=== PATIENT | male | born 1985 | race Hispanic/Latino ===

== ENCOUNTER 2019-07-25 10:13 | Emergency (ER) | payer OTHER ==
[~2019-07-25] VITALS: Ht 185.4 cm; Wt 101.8 kg
[2019-07-25 10:48] LABS: BASO # 0.1 10^3/uL (0.0-0.2); BASO % 0.8 % (0.0-1.0); EOS # 0.1 10^3/uL (0.0-0.5); EOS % 2.1 % (0.0-3.0); HEMATOCRIT 48.8 % (42.0-52.0); HEMOGLOBIN 15.9 g/dl (13.5-17.5); LYMPH # 1.5 10^3/uL (1.5-5.0); LYMPH % 24.5 % (24.0-44.0); MEAN CORPUSCULAR HEMOGLOBIN 29.1 pg (27.0-33.0); MEAN CORPUSCULAR HGB CONC 32.6 g/dl (32.0-36.5); MEAN CORPUSCULAR VOLUME 89.2 fl (80.0-96.0); MONO # 0.6 10^3/uL (0.0-0.8); MONO % 9.3 % (0.0-5.0); NEUTROPHILS # 3.9 10^3/uL (1.5-8.5); NEUTROPHILS % 63.1 % (36.0-66.0); PLATELET COUNT, AUTOMATED 220 10^3/uL (150-450); RED BLOOD COUNT 5.47 10^6/uL (4.30-6.10); WHITE BLOOD COUNT 6.2 10^3/uL (4.0-10.0)
[2019-07-25 11:26] LABS: BLOOD UREA NITROGEN 11 MG/DL (7-18); CALCIUM LEVEL 9.7 MG/DL (8.5-10.1); CARBON DIOXIDE LEVEL 31 MEQ/L (21-32); CHLORIDE LEVEL 104 MEQ/L (98-107); CREATININE FOR GFR 0.92 MG/DL (0.70-1.30); GLOMERULAR FILTRATION RATE > 60.0 (>60); GLUCOSE, FASTING 88 MG/DL (70-100); POTASSIUM SERUM 4.7 MEQ/L (3.5-5.1); SODIUM LEVEL 139 MEQ/L (136-145)
[2019-07-25 12:45] VITALS: BP 109/70
--- NOTE | 2019-07-25 12:47 | REP ---
SCROTAL ULTRASOUND: Real-time sonographic evaluation of scrotum and contents performed. Testicles are normal in size and echotexture, right testicle measuring 4.3 x 2.4 x 3.7 cm and left testicle 5.0 x 2.3 x 3.2 cm. There is no testicular mass or torsion, blood flow is seen in each testicle with duplex Doppler evaluation. There are very small hydroceles. There appears to be a small left varicocele inferiorly with mildly prominent venous structures present. IMPRESSION: No testicular mass or torsion. Electronically Signed by Cristian James MD 07/25/2019 06:44 P
--- NOTE | 2019-07-25 12:49 | REP ---
INGUINAL ULTRASOUND: Real-time sonographic evaluation of bilateral inguinal regions performed at rest and with Valsalva maneuver. There is a right inguinal hernia with protrusion of mesenteric fat into the inguinal ring with Valsalva maneuver. It is reducible. No hernia is seen on the left. IMPRESSION: Small right inguinal hernia containing fat but no bowel, reducible. Electronically Signed by Cristian James MD 07/25/2019 06:45 P
[2019-07-25 13:08] LABS: CHLAMYDIA DNA AMPLIFICATION NEGATIVE (NEGATIVE); GC DNA AMPLIFICATION NEGATIVE (NEGATIVE)
== END 2019-07-25 12:46 | disposition home or self-care (01) ==
LOC: M ED 10:13
DX: K40.90 Unilateral inguinal hernia, without obstruction or gangrene, not specified as recurrent (principal)

== ENCOUNTER 2020-04-05 22:33 | Emergency (ER) | payer OTHER ==
[~2020-04-05] VITALS: Ht 185.4 cm; Wt 94.4 kg
[2020-04-05 22:34] VITALS: BP 129/67
--- NOTE | 2020-04-06 00:04 | REPVR ---
PROCEDURE INFORMATION: Exam: US Pelvis Limited, Male Exam date and time: 04/05/2020 11:32 PM Age: 35 years old Clinical indication: Pain; Testicle; Additional info: Possible hernia TECHNIQUE: Imaging protocol: Real-time pelvic ultrasound with image documentation. COMPARISON: Pelvis, limited US 07/25/2019 11:20 AM FINDINGS: Soft tissues: There is a small reducible fat containing right inguinal hernia that was also present in the prior ultrasound on 07/25/2019. No left inguinal hernia is identified. IMPRESSION: Small reducible fat containing right inguinal hernia that was also present in the prior ultrasound on 07/25/2019. Electronically signed by: Fahad Carbajal On 04/06/2020 00:04:40 AM
--- NOTE | 2020-04-06 00:05 | REPVR ---
PROCEDURE INFORMATION: Exam: US Scrotum and US Duplex Artery and Vein, Scrotum, Complete Exam date and time: 04/05/2020 11:32 PM Age: 35 years old Clinical indication: Scrotum pain; Additional info: Testicular pain, left greater than right TECHNIQUE: Imaging protocol: Real-time ultrasound of the scrotum. Real-time duplex ultrasound scan of the arterial and venous flow of the scrotum with B-mode, color Doppler flow and spectral waveform analysis. Complete exam. Duplex images required to evaluate vascular conditions. COMPARISON: Scrotal, US 07/25/2019 11:09 AM FINDINGS: Right testicle: The right testicle is normal in appearance. No testicular mass or lesion is noted. The right testicle measures 4.5 cm x 2.7 cm x 3.8 cm. The arterial and venous color Doppler flow and spectral waveforms within the right testicle are within normal limits. There is no evidence for right testicular torsion or orchitis. Left testicle: The left testicle is normal in appearance. No testicular mass or lesion is noted. The left testicle measures 5.2 cm x 3 cm x 3 cm. The arterial and venous color Doppler flow and spectral waveforms within the left testicle are within normal limits. There is no evidence for left testicular torsion or orchitis. Epididymides: Normal. No epididymitis. Scrotum: No hydrocele is noted. IMPRESSION: Normal scrotal ultrasound. No evidence for testicular torsion, orchitis, or epididymitis. Electronically signed by: Fahad Carbajal On 04/06/2020 00:04:52 AM
[2020-04-06] MEDS ORDERED: NAPR500T6 PO (00:54)
[2020-04-06] MEDS ORDERED: NAPROXEN 250 MG TAB PO ONE (01:00)
[2020-04-06 02:59] LABS: CHLAMYDIA DNA AMPLIFICATION NEGATIVE (NEGATIVE); GC DNA AMPLIFICATION NEGATIVE (NEGATIVE)
== END 2020-04-06 01:10 | disposition home or self-care (01) ==
LOC: M ED 22:33
DX: N50.812 Left testicular pain (principal)

== ENCOUNTER → 2020-05-17 | Outpatient (CLI) | payer SELFPAY ==
[~2020-05-17] MED LIST: NAPR500T6 PO
== END ==
LOC: M LABSMTC 12:26
PROVIDERS: ATTEND Pediatrics
DX: Z20.828 Contact with and (suspected) exposure to other viral communicable diseases (principal)

== ENCOUNTER → 2020-05-25 | Outpatient (CLI) | payer SELFPAY | LOC: M LABSMTC 13:14 | PROVIDERS: ATTEND Pediatrics | DX: Z20.828 Contact with and (suspected) exposure to other viral communicable diseases (principal) ==

== ENCOUNTER → 2020-06-05 | Outpatient (CLI) | payer SELFPAY | LOC: M LABSMTC 11:51 | PROVIDERS: ATTEND Pediatrics | DX: Z20.822 Contact with and (suspected) exposure to COVID-19 (principal) ==